=== PATIENT | male | born 1955 | race Two or more races ===

== ENCOUNTER 2024-05-29 15:38 | Inpatient (IN) | payer MEDICARE, OTHER ==
[~2024-05-29] VITALS: Ht 180.3 cm; Wt 104.5 kg
[2024-05-29 16:12] LABS: Basophils # (auto) 0.1 10 ^3/uL (0-0.2); Basophils % (auto) 0.4 % (0.0-2.0); Eosinophils # (auto) 0 10 ^3/uL (0-0.8); Eosinophils % (auto) 0.1 % (0.0-7.0); Hematocrit 45.2 % (41.0-53.0); Hemoglobin 15.3 g/dL (13.5-17.5); Lymphocytes # (auto) 2.7 10 ^3/uL (0.4-5.4); Mean Corpuscular Hemoglobin 31.7 pg (28.0-32.0); Mean Corpuscular Hgb Conc. 33.8 g/dL (32.0-36.0); Mean Corpuscular Volume 93.7 fL (80.0-100.0); Monocytes # (auto) 1.7 10 ^3/uL (0-1.3); Neutrophils # (auto) 10.6 10 ^3/uL (1.6-8.6); Neutrophils % (auto) 70.5 % (37.0-80.0); Red Blood Cells 4.82 10^6/uL (4.5-5.90); Red Cell Distribution Width 15.5 % (11.8-14.3)
[2024-05-29 16:34] LABS: Chloride 98 mmol/L (98-107); Potassium 5.5 mmol/L (3.5-5.1); Sodium 132 mmol/L (136-145)
[2024-05-29 16:35] LABS: Anion Gap 19 (5-15); Calcium 10.1 mg/dL (8.7-10.4); Carbon Dioxide 15 mmol/L (20-30)
[2024-05-29 16:40] LABS: BUN/Creatinine Ratio 8.8 (10.0-20.0); Blood Urea Nitrogen 69 mg/dL (9-23); Glucose 141 mg/dL (74-106)
[2024-05-29 16:43] VITALS: PULSE 77; RESP 10; O2SAT 95
[2024-05-29] MEDS: SODIUM CHLORIDE 0.9% 1,000 ML IV ONE ×4 (16:49→19:36)
[2024-05-29 17:04] LABS: Basophils # (auto) 0.1 10 ^3/uL (0-0.2); Basophils % (auto) 0.5 % (0.0-2.0); Eosinophils # (auto) 0 10 ^3/uL (0-0.8); Eosinophils % (auto) 0.3 % (0.0-7.0); Hematocrit 42.5 % (41.0-53.0); Hemoglobin 14.1 g/dL (13.5-17.5); Lymphocytes # (auto) 2.1 10 ^3/uL (0.4-5.4); Lymphocytes % (auto) 15.5 % (10.0-50.0); Mean Corpuscular Hemoglobin 31.2 pg (28.0-32.0); Mean Corpuscular Hgb Conc. 33.1 g/dL (32.0-36.0); Mean Corpuscular Volume 94.2 fL (80.0-100.0); Monocytes # (auto) 1.4 10 ^3/uL (0-1.3); Monocytes % (auto) 10.3 % (0.0-12.0); Neutrophils # (auto) 10.2 10 ^3/uL (1.6-8.6); Neutrophils % (auto) 73.4 % (37.0-80.0); Red Blood Cells 4.52 10^6/uL (4.5-5.90); Red Cell Distribution Width 14.8 % (11.8-14.3); White Blood Cell 13.8 10^3/uL (4.4-10.8)
[2024-05-29 17:06] LABS: Lactic Acid w/Reflex 2.1 mmol/L (0.4-2.0)
[2024-05-29] MEDS: CALCIUM GLUC 1,000mg/50ml-NS 50 ML IV ONE (17:27)
[2024-05-29] MEDS: AZITHROMYCIN 500MG/ 250ML 250 ML IV ONE (17:30)
[2024-05-29] MEDS: SODIUM ZIRCONIUM CYCL 10 GM PAK PO ONE (17:31)
[2024-05-29] MEDS: SODIUM BICARB 8.4% 50Meq/50ml SYR INJ IV ONE (17:37)
[2024-05-29] MEDS: DEXTROSE (50%) 50ML SYRG IV ONE (17:37)
[2024-05-29] MEDS: ALBUTEROL SULF 2.5 MG/0.5ML(0.5%) NEB SOLN NEB ONE (17:42)
[2024-05-29] MEDS: InsuLIN REG 1unit/0.01ml Soln (100units/ml) IV ONE (18:06)
[2024-05-29] MEDS: PIPERACILLIN-TAZOB 3.375GM 100 ML IV ONE (18:16)
[2024-05-29] MEDS ORDERED: ALLO300T2 PO (18:37)
[2024-05-29] MEDS ORDERED: ZOLP10TA6 PO (18:37)
[2024-05-29] MEDS ORDERED: CYCL-611 PO (18:37)
[2024-05-29] MEDS ORDERED: GABA-1251 PO (18:37)
[2024-05-29] MEDS ORDERED: METO-158 PO (18:37)
[2024-05-29] MEDS ORDERED: LISI20TA56 PO (18:37)
[2024-05-29] MEDS ORDERED: IBUP1TAB5 PO (18:37)
[2024-05-29] MEDS ORDERED: FAMO-12 PO (18:37)
[2024-05-29 19:30] VITALS: PULSE 79; RESP 13; O2SAT 96
[2024-05-29] MEDS: SODIUM BICARB 50mEq/50ml Vial 50 ML in SOD CHL 0.45% 1,000 ML IV SCH (20:30)
[2024-05-29 20:52] LABS: Phosphorus 10.5 mg/dL (2.4-5.1)
[2024-05-29] MEDS: DOPamine 1600MCG/ML D5W 250 ML IV ONE (20:53)
[2024-05-29] MEDS: SODIUM BICARB 50mEq/50ml Vial 50 ML in SOD CHL 0.45% 1,000 ML IV ONE (20:56)
[2024-05-29] MEDS: SODIUM BICARB 8.4% 50Meq/50ml SYR Vial IV ONE (21:01)
[2024-05-29] MEDS: NOREPINEPHRINE 8 MG/250ML KIT 250 ML IV SCH (21:13)
[2024-05-29] MEDS: NOREPINEPHRINE 8 MG/250ML KIT 250 ML IV ONE (21:16)
[2024-05-29] MEDS ORDERED: ACETAMINOPHEN 325 MG TAB PO PRN (22:15)
[2024-05-29] MEDS ORDERED: DOCUSATE SOD 100 MG CAP PO PRN (22:15)
[2024-05-29] MEDS ORDERED: NITROGLYCERIN 0.4 MG SL TAB SL PRN (22:15)
[2024-05-29] MEDS ORDERED: MORPHINE SULFATE INJ 2 MG/ml SYRG IV PRN (22:15)
[2024-05-29] MEDS: SODIUM CHLORIDE 0.9% 1,000 ML IV SCH (22:15)
[2024-05-30 01:24] LABS: Urine Bacteria None Seen /hpf (None Seen)
[2024-05-30 01:48] LABS: Protein, Urine 68.9 mg/dL (0.0-11.9)
[2024-05-30 01:50] LABS: Creatinine, Urine 142.21 mg/dL (30.0-125.0); Urine Protein/Creatinine Ratio 0.48
[2024-05-30 01:51] LABS: Creatinine, Urine 141.92 mg/dL (30.0-125.0)
[2024-05-30 02:07] LABS: Urine Blood 2+ /uL (Negative); Urine Clarity Clear (Clear); Urine Color Yellow (Yellow); Urine Hyaline Cast MOD /lpf (0 - 2); Urine Protein, UAD 1+ (Negative); Urine Specific Gravity 1.015 (1.001-1.035); Urine Urobilinogen Normal (Negative); Urine WBC 5 /hpf (0 - 3)
[2024-05-30 04:13] LABS: Basophils # (auto) 0 10 ^3/uL (0-0.2); Basophils % (auto) 0.4 % (0.0-2.0); Eosinophils # (auto) 0 10 ^3/uL (0-0.8); Eosinophils % (auto) 0.3 % (0.0-7.0); Hematocrit 41.8 % (41.0-53.0); Hemoglobin 13.7 g/dL (13.5-17.5); Lymphocytes # (auto) 2.2 10 ^3/uL (0.4-5.4); Lymphocytes % (auto) 16.4 % (10.0-50.0); Mean Corpuscular Hemoglobin 30.9 pg (28.0-32.0); Mean Corpuscular Hgb Conc. 32.7 g/dL (32.0-36.0); Mean Corpuscular Volume 94.7 fL (80.0-100.0); Monocytes # (auto) 1.3 10 ^3/uL (0-1.3); Monocytes % (auto) 9.8 % (0.0-12.0); Neutrophils % (auto) 73.1 % (37.0-80.0); Red Blood Cells 4.41 10^6/uL (4.5-5.90); Red Cell Distribution Width 14.9 % (11.8-14.3); White Blood Cell 13.7 10^3/uL (4.4-10.8)
[2024-05-30 04:29] LABS: Alanine Aminotransferase 94 U/L (7-40); Alkaline Phosphatase 80 U/L (46-116); Anion Gap 13 (5-15); BUN/Creatinine Ratio 12.3 (10.0-20.0); Blood Urea Nitrogen 68 mg/dL (9-23); Calcium 8.8 mg/dL (8.7-10.4); Carbon Dioxide 17 mmol/L (20-30); Chloride 104 mmol/L (98-107); Glucose 138 mg/dL (74-106); Potassium 4.3 mmol/L (3.5-5.1); Sodium 134 mmol/L (136-145)
[2024-05-30 04:30] LABS: Albumin 4.3 g/dL (3.2-4.8); Aspartate Aminotransferase 21 U/L (13-40); Bilirubin, Total 0.6 mg/dL (0.2-1.0)
[2024-05-30 04:31] LABS: Total Protein 7.1 g/dL (5.7-8.2)
[2024-05-30 07:30] VITALS: PULSE 89; RESP 16; O2SAT 95
[2024-05-30 09:03] LABS: Triglycerides 150 mg/dL (< 150)
[2024-05-30 09:04] LABS: LDL Cholesterol 160 mg/dL (< 100)
[2024-05-30 09:05] LABS: HDL Cholesterol 39 mg/dL (40-59)
[2024-05-30 09:06] LABS: Cholesterol 219 mg/dL (< 200)
[2024-05-30 09:08] LABS: Amphetamine Screen, Urine Neg (NEGATIVE); Barbiturate Scree,Urine Neg (NEGATIVE); Benzodiazephine Screen, Urine Neg (NEGATIVE); Cannabinoid Screen, Urine Neg (NEGATIVE); Cocaine Screen, Urine Neg (NEGATIVE); Opiate Scree,Urine Neg (NEGATIVE); Phencyclidine Screen, Urine Neg (NEGATIVE)
[2024-05-30] MEDS ORDERED: VANCOMYCIN PER PHARMACY 0 MG IV SCH (09:15)
[2024-05-30] MEDS: ASPirin 81 mg TAB PO SCH (09:39)
[2024-05-30] MEDS: HYDROcodone-ACET 5/325MG TAB PO PRN (09:58)
[2024-05-30] MEDS: VANCOMYCIN 1GM/200ML 200 ML IV ONE (10:00)
[2024-05-30] MEDS: ENOXAPARIN SOD 30 MG/0.3 ML SYRINGE SC SCH (11:37)
[2024-05-30] MEDS: VANCOMYCIN 500 MG in D5W 5% 100 ML IV ONE (16:12)
[2024-05-30] MEDS ORDERED: ATORVASTATIN 20 MG TAB PO SCH (22:00)
[2024-05-30] MEDS: TEMAZEPAM 15 MG CAP PO ONE (22:48)
[2024-05-31 03:55] VITALS: BP 133/86; PULSE 113; RESP 20; TEMP 98.1; O2SAT 98
[2024-05-31 04:02] VITALS: PULSE 103; RESP 18; O2SAT 98
[2024-05-31 05:00] VITALS: BP 135/84; PULSE 107; RESP 24; TEMP 98.1; O2SAT 98
[2024-05-31 08:00] VITALS: PULSE 108; PULSE 109; RESP 20; O2SAT 96
[2024-05-31] MEDS: cefTRIAXone 1GM/50ML D5W 50 ML IV SCH (09:43)
[2024-05-31] MEDS: VANCOMYCIN 1GM/200ML 200 ML IV ONE (09:44)
[2024-05-31 10:52] LABS: Basophils # (auto) 0.1 10 ^3/uL (0-0.2); Basophils % (auto) 0.6 % (0.0-2.0); Eosinophils # (auto) 0.1 10 ^3/uL (0-0.8); Hematocrit 36.6 % (41.0-53.0); Hemoglobin 12.2 g/dL (13.5-17.5); Lymphocytes # (auto) 1.6 10 ^3/uL (0.4-5.4); Lymphocytes % (auto) 15.3 % (10.0-50.0); Mean Corpuscular Hemoglobin 31.1 pg (28.0-32.0); Mean Corpuscular Hgb Conc. 33.3 g/dL (32.0-36.0); Mean Corpuscular Volume 93.7 fL (80.0-100.0); Monocytes # (auto) 1.3 10 ^3/uL (0-1.3); Monocytes % (auto) 12.3 % (0.0-12.0); Neutrophils # (auto) 7.4 10 ^3/uL (1.6-8.6); Neutrophils % (auto) 70.8 % (37.0-80.0); Nucleated Red Blood Cells % 0.1 %; Red Blood Cells 3.91 10^6/uL (4.5-5.90); White Blood Cell 10.5 10^3/uL (4.4-10.8)
[2024-05-31 11:04] LABS: Alanine Aminotransferase 60 U/L (7-40); Albumin 3.9 g/dL (3.2-4.8); Alkaline Phosphatase 62 U/L (46-116); Anion Gap 5 (5-15); Aspartate Aminotransferase 16 U/L (13-40); BUN/Creatinine Ratio 28.5 (10.0-20.0); Bilirubin, Total 0.8 mg/dL (0.2-1.0); Calcium 9.1 mg/dL (8.5-10.1); Carbon Dioxide 23 mmol/L (20-30); Chloride 111 mmol/L (98-107); Creatine Kinase IFCC 463 U/L (46-171); Glucose 99 mg/dL (74-106); Potassium 4.6 mmol/L (3.5-5.1); Sodium 139 mmol/L (136-145); Total Protein 6.1 g/dL (5.7-8.2)
[2024-05-31 11:10] LABS: Blood Urea Nitrogen 39 mg/dL (9-23)
[2024-05-31] MEDS: LOPERAMIDE HCL 2 MG CAP/TAB PO PRN (18:59)
[2024-05-31] MEDS: ONDANSETRON HCL 4 MG/2 ML VIAL IV PRN (18:59)
[2024-05-31 20:00] VITALS: PULSE 106; PULSE 107; RESP 19; O2SAT 91
[2024-05-31 21:00] VITALS: BP 132/82; PULSE 106; RESP 19; TEMP 98; O2SAT 91
[2024-06-01] VITALS (8 sets, daily range): BP systolic 151–174; BP diastolic 78–112; PULSE 82–112; RESP 16–20; TEMP 98–99.4; O2SAT 92–97
[2024-06-01] MEDS: METOCLOPRAMIDE HCL 5MG/ml INJ 2ml VIAL IV ONE (05:23)
[2024-06-01 06:21] LABS: Basophils # (auto) 0 10 ^3/uL (0-0.2); Basophils % (auto) 0.2 % (0.0-2.0); Eosinophils # (auto) 0 10 ^3/uL (0-0.8); Eosinophils % (auto) 0.3 % (0.0-7.0); Hematocrit 36.2 % (41.0-53.0); Hemoglobin 12.7 g/dL (13.5-17.5); Lymphocytes # (auto) 1.5 10 ^3/uL (0.4-5.4); Lymphocytes % (auto) 13.8 % (10.0-50.0); Mean Corpuscular Hemoglobin 32.6 pg (28.0-32.0); Mean Corpuscular Volume 93.2 fL (80.0-100.0); Monocytes # (auto) 1.1 10 ^3/uL (0-1.3); Monocytes % (auto) 10.5 % (0.0-12.0); Neutrophils % (auto) 75.2 % (37.0-80.0); Red Blood Cells 3.88 10^6/uL (4.5-5.90); Red Cell Distribution Width 14.4 % (11.8-14.3); White Blood Cell 10.6 10^3/uL (4.4-10.8)
[2024-06-01 06:41] LABS: Alanine Aminotransferase 53 U/L (7-40); Alkaline Phosphatase 66 U/L (46-116); Anion Gap 10 (5-15); Aspartate Aminotransferase 22 U/L (13-40); BUN/Creatinine Ratio 20.6 (10.0-20.0); Blood Urea Nitrogen 20 mg/dL (9-23); Calcium 9.6 mg/dL (8.7-10.4); Carbon Dioxide 22 mmol/L (20-30); Chloride 108 mmol/L (98-107); Glucose 108 mg/dL (74-106); Potassium 4.4 mmol/L (3.5-5.1); Sodium 140 mmol/L (136-145)
[2024-06-01 06:42] LABS: Bilirubin, Total 0.7 mg/dL (0.2-1.0); Total Protein 6.6 g/dL (5.7-8.2)
[2024-06-01] MEDS: CYCLOBENZAPRINE HCL 10 MG TAB PO SCH (10:12)
[2024-06-01] MEDS: ENOXAPARIN SOD 40 MG/0.4 ML SYRINGE SC SCH (10:12)
[2024-06-01] MEDS: SODIUM CHLORIDE 0.9% 1,000 ML IV SCH (10:13)
[2024-06-01] MEDS: PROMETHAZINE HCL 6.25 MG/5 ML ORAL SYRUP PO PRN (11:48)
[2024-06-01] MEDS: cloNIDine HCL 0.1 MG TAB PO PRN (13:09)
[2024-06-02] VITALS (7 sets, daily range): BP systolic 125–168; BP diastolic 71–92; PULSE 79–98; RESP 16–20; TEMP 36.7; O2SAT 95–97
[2024-06-02 06:40] LABS: Basophils # (auto) 0.1 10 ^3/uL (0-0.2); Basophils % (auto) 0.5 % (0.0-2.0); Eosinophils # (auto) 0 10 ^3/uL (0-0.8); Eosinophils % (auto) 0.3 % (0.0-7.0); Hematocrit 35.8 % (41.0-53.0); Hemoglobin 12.2 g/dL (13.5-17.5); Lymphocytes # (auto) 1.8 10 ^3/uL (0.4-5.4); Lymphocytes % (auto) 15.4 % (10.0-50.0); Mean Corpuscular Hemoglobin 31.2 pg (28.0-32.0); Mean Corpuscular Hgb Conc. 33.9 g/dL (32.0-36.0); Mean Corpuscular Volume 92.1 fL (80.0-100.0); Monocytes # (auto) 1.2 10 ^3/uL (0-1.3); Monocytes % (auto) 10.5 % (0.0-12.0); Neutrophils # (auto) 8.6 10 ^3/uL (1.6-8.6); Neutrophils % (auto) 73.3 % (37.0-80.0); Red Blood Cells 3.89 10^6/uL (4.5-5.90); Red Cell Distribution Width 14.4 % (11.8-14.3); White Blood Cell 11.7 10^3/uL (4.4-10.8)
[2024-06-02 06:46] LABS: Alanine Aminotransferase 44 U/L (7-40); Alkaline Phosphatase 64 U/L (46-116); Anion Gap 7 (5-15); Aspartate Aminotransferase 24 U/L (13-40); BUN/Creatinine Ratio 20.5 (10.0-20.0); Blood Urea Nitrogen 17 mg/dL (9-23); Calcium 9.1 mg/dL (8.5-10.1); Carbon Dioxide 26 mmol/L (20-30); Chloride 104 mmol/L (98-107); Glucose 106 mg/dL (74-106); Potassium 4.2 mmol/L (3.5-5.1); Sodium 137 mmol/L (136-145)
[2024-06-02 06:47] LABS: Bilirubin, Total 0.6 mg/dL (0.2-1.0); Creatine Kinase IFCC 186 U/L (46-171); Total Protein 6.4 g/dL (5.7-8.2)
== END 2024-06-02 16:30 | disposition home or self-care (01) | DRG 871 ==
LOC: ER 15:38 → TELE 22:15 → TELE-E-ADS 05-31 03:55
PROVIDERS: ADMIT Nurse Practitioner Family; ATTEND Family Medicine
DX: A41.9 Sepsis, unspecified organism (principal); R57.1 Hypovolemic shock; R65.21 Severe sepsis with septic shock; M62.82 Rhabdomyolysis; N17.9 Acute kidney failure, unspecified; E86.0 Dehydration; E87.5 Hyperkalemia; I25.10 Atherosclerotic heart disease of native coronary artery without angina pectoris; I10 Essential (primary) hypertension; G89.29 Other chronic pain; E66.9 Obesity, unspecified; E11.65 Type 2 diabetes mellitus with hyperglycemia; E78.00 Pure hypercholesterolemia, unspecified; N13.9 Obstructive and reflux uropathy, unspecified; I65.21 Occlusion and stenosis of right carotid artery; M10.9 Gout, unspecified; X30.XXXA Exposure to excessive natural heat, initial encounter; Z98.61 Coronary angioplasty status; I25.2 Old myocardial infarction; Z88.8 Allergy status to other drugs, medicaments and biological substances; Z68.32 Body mass index [BMI] 32.0-32.9, adult; R19.7 Diarrhea, unspecified
CPT/HCPCS: 36415; 70450; 71045; 73700; 76775; 80048; 80053; 80061; 80202; 80307; 81001; 82306; 82550; 82570; 82962; 83036; 83605; 83735; 83970; 84100; 84156; 84300; 84443; 85025; 87040; 87086; 93005; 93306; 93886; 94640; 97163; 99291; G0378; J1815; J2405; J2543; J7060